=== PATIENT | female | born 1995 | race Caucasian/White ===

== ENCOUNTER 2024-11-14 10:36 | Emergency (ER) | payer OTHER, SELFPAY ==
[2024-11-14 11:00] VITALS: BP 122/89; PULSE 61; RESP 14; TEMP 36.7; O2SAT 100; BMI 21.4
--- NOTE | 2024-11-14 12:01 | ED_ITS ---
<Statement entered by Isreal Leung DO - 11/16/24 10:49> Dr. Leung: I was immediately available in the department for consultation. I did not actually see the patient. HPI - Recheck/Abnormal Lab/Rx General Chief Complaint: Recheck/Abnormal Lab/Rx Stated Complaint: Refills on her Meds Time Seen by Provider: 11/14/24 11:39 Source: patient Mode of arrival: Ambulatory History of Present Illness HPI narrative: Ms. Centeno is a pleasant 29-year-old female with a past medical history of ADHD and PTSD who presents to the emergency department for medication refill. Patient states that she was arrested on the and had her medications taken from her and they were not returned. She is requesting refills of her dextroamphetamine 20 mg caps for ADHD and prazosin 1 mg for PTSD. Nursing staff discussed with the patient that she can call and contact her primary care doctor to try to refill these electronically. Patient was able to successfully have her primary care doctor refill these medications. She has no other concerns at this time. Related Data Allergies Allergy/AdvReac Type Severity Reaction Status Date / Time Penicillins Allergy Verified 11/14/24 11:03 Review of Systems Review of Systems ROS Unobtainable: All systems reviewed & are unremarkable except as noted in HPI and below Patient History Social History Smoking Status: Smoker, status unknown Smoking Status: Smoker, status unknown Exam Narrative Exam Narrative: GENERAL: 29 year old patient appears stated age. Well-developed patient, in no acute distress. HEAD: Atraumatic. Normocephalic. NECK: Trachea midline. Cervical ROM intact. CARDIOVASCULAR: Regular rate. RESPIRATORY: ?Nonlabored respirations. ?Speaking in clear, full sentences NEURO: AOx3. ?Clear speech. ?Moves all 4 extremities appropriately. SKIN: No rash or erythema of visible areas Initial Vital Signs Initial Vital Signs: Vital Signs Temperature 98.1 F 11/14/24 11:00 Pulse Rate 61 11/14/24 11:00 Respiratory Rate 14 11/14/24 11:00 Blood Pressure 122/89 11/14/24 11:00 Pulse Oximetry 100 11/14/24 11:00 Oxygen Delivery Method Room Air 11/14/24 11:00 Course Vital Signs Vital signs: Vital Signs - 8 hr 11/14/24 11:00 11/14/24 12:11 Temperature 98.1 F 98 F Pulse Rate 61 76 Respiratory Rate 14 18 Blood Pressure 122/89 118/78 Pulse Oximetry 100 99 Oxygen Delivery Method Room Air Room Air MDM - Recheck/Abnormal Lab/Rx Medical Records Attestation: I reviewed the patient's medical records. Medical records narrative: Reviewed PDMP MDM Narrative Medical decision making narrative: 29-year-old female with a past medical history of ADHD and PTSD who presents to the emergency department for medication refill. Patient states that she was arrested on the and had her medications taken from her and they were not returned. She is requesting refills of her dextroamphetamine 20 mg caps for ADHD and prazosin 1 mg for PTSD. Nursing staff discussed with the patient that she can call and contact her primary care doctor to try to refill these electronically. Patient was able to successfully have her primary care doctor refill these medications. Patient has no other concerns at this time, all of her questions answered, encouraged her to follow up with her primary care doctor and return to the emergency department with any concerns. She is stable for discharge home. Discharge Plan Departure Patient Disposition: Home Clinical Impression: Encounter for medication refill Activity Restrictions/Additional Instructions: Thank you for coming to the emergency department. Today you were evaluated for medication refill however luckily your primary care doctor was able to electronically prescribe these medications for you. Please follow up with your primary care doctor and return to the emergency department with any concerns. Please follow up with your primary care doctor within the next 2-3 days for ER follow-up. (If you do not have a PCP you can call [phone]. ?to schedule an appointment with an [facility] Primary Care Provider) IF YOU DEVELOP ANY NEW OR WORSENING SYMPTOMS, RETURN TO THE ER! Please read the attached instructions, they highlight more specific treatments and interventions for you at home. Thank you for letting me participate in your care, Swapna Torres PA-C Stand Alone Forms: Patient Portal/API/Survey
[2024-11-14 12:11] VITALS: BP 118/78; PULSE 76; RESP 18; TEMP 36.6; O2SAT 99
== END 2024-11-14 12:05 | disposition home or self-care (01) ==
PROVIDERS: Emergency Provider Physician Assistant
DX: Z76.0 Encounter for issue of repeat prescription (principal)
CPT/HCPCS: 99281

== ENCOUNTER 2025-04-01 18:08 | Emergency (ER) | payer OTHER, SELFPAY ==
[2025-04-01 18:20] VITALS: BP 118/66; PULSE 95; RESP 16; TEMP 36.9; O2SAT 100; BMI 22.3
[2025-04-02] VITALS (7 sets, daily range): BP systolic 94–108; BP diastolic 58–72; PULSE 55–85; RESP 16–17; O2SAT 94–100
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
[2025-04-02 01:09] LABS: Add Manual Diff / Slide Review NO; Hematocrit 39.3 % (36-46); Hemoglobin 14.0 g/dL (12.0-16.0); Lymphocytes Absolute Auto 1700 /uL (1100-4500); Mean Corpuscular HGB Conc 35.6 % (30-36); Mean Corpuscular Hemoglobin 32.5 PG (26-34); Mean Corpuscular Volume 91.1 fL (80-100); Platelet Count 160 X10^3/uL (150-400)
[2025-04-02 01:19] LABS: Blood Urea Nitrogen 11 mg/dL (7-17); Calcium 8.9 mg/dL (8.4-10.2); Carbon Dioxide 26 mmol/L (22-32); Chloride 102 mmol/L (98-107); Estimated Glomerular Filt Rate > 60 mL/min (>60); Glucose 75 mg/dL (70-99); HEMOLYSIS < 15 (0-50); Potassium 3.8 mmol/L (3.4-5.1); Sodium 135 mmol/L (137-145)
[2025-04-02 01:36] LABS: HCG Quantitative /Beta subunit < 2.39 mIU/mL
== END 2025-04-02 07:09 | disposition home or self-care (01) ==
PROVIDERS: Emergency Provider Student in an Organized Health Care Education/Training Program
DX: T76.21XA Adult sexual abuse, suspected, initial encounter (principal); Z59.02 Unsheltered homelessness
CPT/HCPCS: 80048; 81003; 81025; 84702; 85025; 99282; 99283

== ENCOUNTER 2025-04-03 00:49 | Emergency (ER) | payer OTHER, SELFPAY ==
[2025-04-03 01:11] VITALS: BP 156/71; PULSE 97; RESP 18; TEMP 36.1; O2SAT 96; BMI 24.0
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
== END 2025-04-03 06:15 | disposition home or self-care (01) ==
PROVIDERS: Emergency Provider Emergency Medicine
DX: Z76.0 Encounter for issue of repeat prescription (principal); Z59.00 Homelessness unspecified
CPT/HCPCS: 99281

== ENCOUNTER 2025-04-05 00:39 | Emergency (ER) | payer OTHER, SELFPAY ==
[2025-04-05 01:06] VITALS: BP 127/66; PULSE 63; RESP 14; TEMP 36.1; O2SAT 99; BMI 21.4
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
[2025-04-05] MEDS: PRAZOSIN 1 MG CAPSULE PO (01:22)
== END 2025-04-05 01:29 | disposition home or self-care (01) ==
PROVIDERS: Emergency Provider Family Medicine
DX: Z76.0 Encounter for issue of repeat prescription (principal); F43.10 Post-traumatic stress disorder, unspecified; F90.9 Attention-deficit hyperactivity disorder, unspecified type; Z59.00 Homelessness unspecified; Z76.5 Malingerer [conscious simulation]
CPT/HCPCS: 99283

== ENCOUNTER 2025-04-05 22:41 | Emergency (ER) | payer OTHER, SELFPAY ==
[2025-04-05 22:49] VITALS: BP 138/86; PULSE 92; RESP 17; TEMP 36.3; O2SAT 100; BMI 21.4
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
--- NOTE | 2025-04-05 23:08 | PC.NURSE ---
Gave patient prazosin, patient declined to take it in front of me. I stated that it was necessary and she stated that she didn't want to because it made her tired. Educated that I would need her to take it in front of me and patient handed it back to me. Discharge completed and given [facility] again.
== END 2025-04-05 23:05 | disposition home or self-care (01) ==
LOC: ED 23:00
PROVIDERS: Emergency Provider Student in an Organized Health Care Education/Training Program
DX: F43.10 Post-traumatic stress disorder, unspecified (principal); Z59.00 Homelessness unspecified; Z76.5 Malingerer [conscious simulation]; Z76.0 Encounter for issue of repeat prescription; F90.9 Attention-deficit hyperactivity disorder, unspecified type
CPT/HCPCS: 99283

== ENCOUNTER 2025-04-08 00:03 | Emergency (ER) | payer OTHER, SELFPAY ==
[2025-04-08 00:47] VITALS: BP 142/77; PULSE 85; RESP 16; TEMP 36.6; O2SAT 98; BMI 21.4
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
[2025-04-08 03:51] LABS: Appearance Urine UA CLEAR; Bilirubin Urine UA NEGATIVE (NEGATIVE); Color Urine UA YELLOW; Glucose Urine UA NEGATIVE (Negative); Ketones Urine UA NEGATIVE (NEGATIVE); Leukocyte Esterase Urine UA NEGATIVE (NEGATIVE); Nitrite Urine UA NEGATIVE (Negative); Occult Blood Urine UA 2+ (Negative); Protein Urine UA NEGATIVE (Negative); Specific Gravity Urine UA 1.015 (1.000-1.035); Urobilinogen Urine UA 0.2 E.U./dL (0.2)
[2025-04-08 03:59] LABS: pH Urine UA 7.0 (4.5-8.0)
[2025-04-08 04:06] LABS: Culture Indicated Urine Cult Not Indicated
[2025-04-08 05:17] LABS: Urine N gonorrhoeae NOT DETECTED
[2025-04-08 05:20] LABS: Urine Chlamydia NOT DETECTED
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
== END 2025-04-08 05:31 | disposition home or self-care (01) ==
PROVIDERS: Emergency Provider Family Medicine
DX: Z59.00 Homelessness unspecified (principal); Z76.5 Malingerer [conscious simulation]; Z76.0 Encounter for issue of repeat prescription
CPT/HCPCS: 81001; 87491; 87591; 99283; 99284